=== PATIENT | female | born 1980 | race Caucasian/White ===

== ENCOUNTER 2021-01-21 13:28 | Inpatient (IN) ==
[2021-01-21] MEDS ORDERED: LORazepam 2 mg VIAL 1 ml IV PUSH ONE (14:01)
[2021-01-21] MEDS ORDERED: Lorazepam PYXIS KEY PRN (14:01)
[2021-01-21 14:24] LABS: Hematocrit 30 % (35-47); Hemoglobin 9.9 g/dL (12.0-16.0); Mean Corpuscular HGB Conc 33 g/dL (31-36); Mean Corpuscular Hemoglobin 26 pg (27-31); Mean Corpuscular Volume 78 fL (80-97); Mean Platelet Volume 7.8 fL (7.4-10.4); Platelet Count 291 10^3/uL (150-450); Red Blood Count 3.89 10^6 /uL (3.70-4.87); Red Cell Distribution Width 17 % (10-15); White Blood Count 18.2 10^3/uL (3.5-10.8)
[2021-01-21 14:36] LABS: Calcium 8.3 mg/dL (8.6-10.3); Potassium 3.7 mmol/L (3.5-5.0); eGFR CKD-EPI 110.2 (>60)
[2021-01-21] MEDS ORDERED: NS 0.9% 500 ml BAG 500 ML IV SCH (15:00)
[2021-01-21] MEDS ORDERED: Ondansetron 4 mg VIAL 2 MG/ML 2 ml VIAL IV PRN (15:30)
[2021-01-21 16:17] LABS: Troponin I 0.01 ng/mL (<0.03)
[2021-01-21] MEDS ORDERED: ZOSYN 3.375 GM x ONE DOSE over 30 miuntes IV (16:45)
[2021-01-21 16:46] LABS: Albumin 3.4 g/dL (3.2-5.2); Albumin/Globulin Ratio 1.1 (1-3); Globulin 3.2 g/dL (2-4); Total Bilirubin 0.7 mg/dL (0.2-1.0); Total Protein 6.6 g/dL (6.4-8.9)
[2021-01-21 17:37] LABS: ABS Lymphocytes 1.1 10^3/ul (1.0-4.8); ABS Monocytes 1.6 10^3/ul (0-0.8); ABS Neutrophils 14.8 10^3/ul (1.5-7.7); Lymphocyte % 6.2 %
[2021-01-21 20:10] LABS: Rapid COVID-19 Molecular Undetected (Undetected)
[2021-01-21] MEDS ORDERED: Morphine 2 MG/ML SYRINGE IV PRN (21:26)
[2021-01-21] MEDS: Heparin 5000 UNITS/ML 1 mL VIAL SUBCUT SCH (21:35)
[2021-01-22] MEDS: NS 0.9% 1000 ml BAG 1,000 ML IV SCH ×2 (02:02→15:52)
[2021-01-22] MEDS: Piperacillin/Tazobac ADVAN 3.375 GM in NS 0.9% 100 ml BAG 100 ML IV SCH ×3 (02:02→17:57)
[2021-01-22] MEDS: Heparin 5000 UNITS/ML 1 mL VIAL SUBCUT SCH ×3 (05:42→22:36)
[2021-01-22 06:25] LABS: ABS Basophils 0.1 10^3/ul (0-0.2); ABS Lymphocytes 1.2 10^3/ul (1.0-4.8); ABS Monocytes 1.2 10^3/ul (0-0.8); ABS Neutrophils 10.6 10^3/ul (1.5-7.7); Eosinophil % 0.2 %; Hematocrit 29 % (35-47); Hemoglobin 9.4 g/dL (12.0-16.0); Lymphocyte % 8.9 %; Mean Corpuscular HGB Conc 33 g/dL (31-36); Mean Corpuscular Hemoglobin 26 pg (27-31); Mean Corpuscular Volume 78 fL (80-97); Mean Platelet Volume 7.7 fL (7.4-10.4); Platelet Count 282 10^3/uL (150-450); Red Blood Count 3.65 10^6 /uL (3.70-4.87); Red Cell Distribution Width 17 % (10-15); White Blood Count 13.1 10^3/uL (3.5-10.8)
[2021-01-22 06:32] LABS: Urine Appearance Cloudy; Urine Bilirubin Negative (Negative); Urine Blood Negative (Negative); Urine Color Amber; Urine Glucose Negative (Negative); Urine Ketones 1+ (Negative); Urine Nitrite Negative (Negative); Urine Protein 1+(30 mg/dL) (Negative); Urine Specific Gravity 1.029 (1.002-1.030); Urine Urobilinogen Negative (Negative)
[2021-01-22 06:43] LABS: Urine Bacteria Absent (Absent); Urine Red Blood Cell Trace(0-2/hpf) (Absent); Urine Squamous Epithelial Cell Present (Absent); Urine White Blood Cell Trace(0-5/hpf) (Absent); Urine Yeast Present (Absent)
[2021-01-22 06:54] LABS: Calcium 8.2 mg/dL (8.6-10.3); Potassium 3.6 mmol/L (3.5-5.0); eGFR CKD-EPI 112.8 (>60)
[2021-01-22 09:00] LABS: Magnesium 2.1 mg/dL (1.9-2.7)
[2021-01-22 09:21] LABS: Ferritin 167.1 ng/mL (11-307)
[2021-01-22 09:25] LABS: Folate 13.91 ng/mL (5.90-24.80)
[2021-01-22] MEDS ORDERED: HYDROcodone/ACETAMIN 5/325 mg TAB PO PRN ×2 (23:09)
[2021-01-23] MEDS: NS 0.9% 1000 ml BAG 1,000 ML IV SCH ×2 (01:58→16:39)
[2021-01-23] MEDS: Piperacillin/Tazobac ADVAN 3.375 GM in NS 0.9% 100 ml BAG 100 ML IV SCH ×3 (01:58→16:39)
[2021-01-23] MEDS: Heparin 5000 UNITS/ML 1 mL VIAL SUBCUT SCH ×3 (06:16→21:23)
[2021-01-23 07:14] LABS: ABS Basophils 0.1 10^3/ul (0-0.2); ABS Eosinophils 0.1 10^3/ul (0-0.6); ABS Lymphocytes 1.3 10^3/ul (1.0-4.8); ABS Monocytes 0.8 10^3/ul (0-0.8); ABS Neutrophils 5.6 10^3/ul (1.5-7.7); Eosinophil % 0.9 %; Hematocrit 29 % (35-47); Hemoglobin 9.6 g/dL (12.0-16.0); Lymphocyte % 16.9 %; Mean Corpuscular HGB Conc 33 g/dL (31-36); Mean Corpuscular Hemoglobin 26 pg (27-31); Mean Corpuscular Volume 78 fL (80-97); Mean Platelet Volume 7.8 fL (7.4-10.4); Nucleated Red Blood Cells % 0.1; Platelet Count 300 10^3/uL (150-450); Red Blood Count 3.77 10^6 /uL (3.70-4.87); Red Cell Distribution Width 17 % (10-15); White Blood Count 7.8 10^3/uL (3.5-10.8)
[2021-01-23 07:24] LABS: Calcium 8.3 mg/dL (8.6-10.3); Magnesium 2.1 mg/dL (1.9-2.7); Potassium 3.7 mmol/L (3.5-5.0); eGFR CKD-EPI 113.7 (>60)
[2021-01-23] MEDS ORDERED: NS 0.9% 1000 ml BAG 1,000 ML IV SCH (17:54)
[2021-01-24] MEDS: Piperacillin/Tazobac ADVAN 3.375 GM in NS 0.9% 100 ml BAG 100 ML IV SCH (01:14)
[2021-01-24] MEDS: Heparin 5000 UNITS/ML 1 mL VIAL SUBCUT SCH ×2 (06:22→15:20)
[2021-01-24 06:47] LABS: Hematocrit 27 % (35-47); Hemoglobin 9.2 g/dL (12.0-16.0); Mean Corpuscular HGB Conc 34 g/dL (31-36); Mean Corpuscular Hemoglobin 26 pg (27-31); Mean Corpuscular Volume 77 fL (80-97); Mean Platelet Volume 7.6 fL (7.4-10.4); Platelet Count 298 10^3/uL (150-450); Red Blood Count 3.52 10^6 /uL (3.70-4.87); Red Cell Distribution Width 16 % (10-15); White Blood Count 7.5 10^3/uL (3.5-10.8)
[2021-01-24 07:05] LABS: Calcium 8.6 mg/dL (8.6-10.3); Potassium 3.7 mmol/L (3.5-5.0); eGFR CKD-EPI 115.4 (>60)
[2021-01-24 07:06] LABS: ABS Basophils 0.1 10^3/ul (0-0.2); ABS Eosinophils 0.1 10^3/ul (0-0.6); ABS Lymphocytes 1.3 10^3/ul (1.0-4.8); ABS Monocytes 0.8 10^3/ul (0-0.8); ABS Neutrophils 5.2 10^3/ul (1.5-7.7); Eosinophil % 1.7 %; Lymphocyte % 17.1 %; Nucleated Red Blood Cells % 0.1
[2021-01-24 08:22] VITALS: BP 150/98
[2021-01-24] MEDS: Amoxicillin/Clavul 875/125 TAB (Augmentin 875 tab) PO SCH ×2 (08:42→15:19)
[2021-01-25 13:27] LABS: % Iron Saturation 22 % (14 - 50); Total Iron Binding Capacity 198 mcg/dL (250 - 400); Transferrin 168 mg/dL (200 - 360)
== END 2021-01-24 15:23 | disposition home or self-care (01) | DRG 720 ==
LOC: ED 13:28 → SUATTDRO 15:48 → EDHOLD 15:48 → SSU 18:24
PROVIDERS: ADMIT Hospitalist; ATTEND Internal Medicine